=== PATIENT | female | born 1965 | race African-American/Black ===

== ENCOUNTER 2017-01-24 16:45 | Emergency (ER) | payer MEDICAID ==
[~2017-01-24] VITALS: Ht 162.6 cm; Wt 73.0 kg
[~2017-01-24 16:45] MED LIST: AMLO10TA80 PO; AMLO5TAB88 PO; AMOX-CLAV PO; ATOR40TA70 PO; CLOP75TA33 PO; HYDR-4009 PO; LORA1TAB PO; LOSA1TAB37 PO; METO50TA5 PO; SUCR1TAB PO
[2017-01-24] MEDS ORDERED: ONDANSETRON HCL 4MG/2ML VIAL IV STA (18:44)
[2017-01-24] MEDS ORDERED: SODIUM CHLORIDE 0.9% 500 ML IV ONE (18:44)
[2017-01-24] MEDS ORDERED: FAMOTIDINE 20MG/2ML VIAL IV STA (18:44)
[2017-01-24] MEDS ORDERED: MAGNESIUM/ALUMINUM HYDROXIDE/SIMETHICONE 30ML UDC PO STA (18:44)
[2017-01-24 19:16] LABS: BASOPHILS % 0.8 % (0.0-2.0); EOSINOPHILS % 0.4 % (0.0-5.0); HEMATOCRIT. 31.1 % (36.0-48.0); HEMOGLOBIN. 9.8 g/dL (12.0-16.0); LYMPHOCYTES % 10.3 % (20.0-50.0); MEAN CORPUSCULAR HEMOGLOBIN 21.1 pg (28.0-32.0); MEAN CORPUSCULAR VOLUME 66.5 fL (81.0-99.0); MEAN PLATELET VOLUME 7.5 fl (7.4-10.4); MONOCYTES % 3.5 % (2.0-8.0); PLATELET 436 x1000/uL (130-400); RED BLOOD CELL COUNT 4.67 mill/uL (4.2-5.4); RED CELL DISTRIBUTION WIDTH 17.3 % (11.6-14.6)
[2017-01-24 19:22] LABS: PROTHROMBIN TIME 10.7 sec (9.4-11.6)
[2017-01-24 19:24] LABS: CARBON DIOXIDE 29 mEq/L (21-32); CHLORIDE 98 mEq/L (98-107)
[2017-01-24 19:35] LABS: PLATELET ESTIMATE SLIGHTLY INCREASED
[2017-01-24] MEDS ORDERED: DIPHENHYDRAMINE 50MG/ML VIAL IV ONE (20:00)
[2017-01-24] MEDS ORDERED: METOCLOPRAMIDE HCL 10MG/2ML VIAL IV ONE ×2 (20:00→22:15)
[2017-01-24] MEDS ORDERED: POTASSIUM CHLORIDE 20MEQ/PACKET PO ONE (21:45)
[2017-01-24 22:08] LABS: CLARITY URINE CLOUDY (CLEAR); COLOR URINE YELLOW (YELLOW); GLUCOSE URINE 2+ (NEGATIVE); KETONES URINE 2+ (NEGATIVE); LEUKOCYTE ESTERASE URINE TRACE (NEGATIVE); NITRITE URINE POSITIVE (NEGATIVE); OCCULT BLOOD URINE 2+ (NEGATIVE); PROTEIN URINE 3+ (NEGATIVE); SPECIFIC GRAVITY URINE 1.026 (1.005-1.030)
[2017-01-24] MEDS ORDERED: MORPHINE SULFATE 4 MG/ML CPJ (NOT FOR IM USE) IV ONE (22:15)
[2017-01-24] MEDS ORDERED: CEFTRIAXONE 1 G PREMIX 50 ML IV ONE (22:45)
[2017-01-24 23:11] VITALS: BP 164/96
[2017-02-16] MEDS ORDERED: OMEP20CA10 PO (12:56)
== END 2017-01-24 23:23 | disposition home or self-care (01) ==
LOC: ER 16:45
DX: N39.0 Urinary tract infection, site not specified (principal); R10.9 Unspecified abdominal pain; R11.0 Nausea; E87.6 Hypokalemia; I10 Essential (primary) hypertension; I25.2 Old myocardial infarction; I25.10 Atherosclerotic heart disease of native coronary artery without angina pectoris; F17.210 Nicotine dependence, cigarettes, uncomplicated; F12.10 Cannabis abuse, uncomplicated; E11.43 Type 2 diabetes mellitus with diabetic autonomic (poly)neuropathy; K31.84 Gastroparesis; G89.29 Other chronic pain; E78.00 Pure hypercholesterolemia, unspecified; Z88.3 Allergy status to other anti-infective agents; Z98.62 Peripheral vascular angioplasty status; Z86.718 Personal history of other venous thrombosis and embolism
CPT/HCPCS: 36415; 80053; 81001; 83690; 85025; 85610; 93005; 96361; 96365; 96375; 96376; 99285; J0696; J1200; J2270; J2405; J2765; J3490; J7030; Z7610

== ENCOUNTER 2017-02-15 09:53 | Inpatient (IN) | payer MEDICAID ==
[~2017-02-15] VITALS: Ht 162.6 cm; Wt 72.6 kg
[2017-02-15] MEDS ORDERED: ONDANSETRON HCL 4MG/2ML VIAL IV STA (10:40)
[2017-02-15] MEDS ORDERED: DICYCLOMINE 10 MG/5 ML ORAL SYR PO ONE (10:45)
[2017-02-15] MEDS ORDERED: FAMOTIDINE 20MG/2ML VIAL IV ONE (10:45)
[2017-02-15] MEDS ORDERED: NITROGLYCERIN OINT 1GM/INCH UDPKT TD ONE (10:45)
[2017-02-15] MEDS ORDERED: MAGNESIUM/ALUMINUM HYDROXIDE/SIMETHICONE 30ML UDC PO ONE (10:45)
[2017-02-15] MEDS ORDERED: VISCOUS LIDOCAINE 2% 15 ML UDC PO ONE (10:45)
[2017-02-15] MEDS ORDERED: DIPHENHYDRAMINE 50MG/ML VIAL IV ONE (11:15)
[2017-02-15] MEDS ORDERED: METOCLOPRAMIDE HCL 10MG/2ML VIAL IV ONE (11:15)
[2017-02-15 11:35] LABS: BASOPHILS % 0.6 % (0.0-2.0); EOSINOPHILS % 0.2 % (0.0-5.0); HEMATOCRIT. 33.3 % (36.0-48.0); HEMOGLOBIN. 10.2 g/dL (12.0-16.0); LYMPHOCYTES % 10.2 % (20.0-50.0); MEAN CORPUSCULAR HEMOGLOBIN 20.8 pg (28.0-32.0); MEAN CORPUSCULAR VOLUME 67.5 fL (81.0-99.0); MEAN PLATELET VOLUME 7.2 fl (7.4-10.4); PLATELET 328 x1000/uL (130-400); RED BLOOD CELL COUNT 4.93 mill/uL (4.2-5.4); RED CELL DISTRIBUTION WIDTH 17.6 % (11.6-14.6)
[2017-02-15 11:43] LABS: CHLORIDE 103 mEq/L (98-107); INR 1.1
[2017-02-15 11:54] LABS: CARBON DIOXIDE 27 mEq/L (21-32); TROPONIN I < 0.02 ng/mL (0.00-0.04)
[2017-02-15 12:29] LABS: PLATELET ESTIMATE NORMAL
[2017-02-15] MEDS ORDERED: HYDROCODONE/ACETAMINOPHEN 5/325MG TABLET PO PRN ×2 (14:00→14:15)
[2017-02-15] MEDS ORDERED: CLONIDINE 0.1MG TABLET PO NR (14:00)
[2017-02-15 14:15] LABS: CLARITY URINE CLEAR (CLEAR); COLOR URINE YELLOW (YELLOW); GLUCOSE URINE TRACE (NEGATIVE); KETONES URINE NEGATIVE (NEGATIVE); LEUKOCYTE ESTERASE URINE TRACE (NEGATIVE); NITRITE URINE NEGATIVE (NEGATIVE); OCCULT BLOOD URINE TRACE (NEGATIVE); PH URINE 5.5 (4.5-8.0); PROTEIN URINE 2+ (NEGATIVE); UROBILINOGEN URINE 0.2 E.U./dL (0.2-1.0)
[2017-02-15] MEDS ORDERED: ACETAMINOPHEN 325MG TABLET PO PRN (14:15)
[2017-02-15] MEDS ORDERED: CLONIDINE 0.1MG TABLET PO PRN (14:15)
[2017-02-15] MEDS ORDERED: DOCUSATE SODIUM 100MG CAPSULE PO PRN (14:15)
[2017-02-15] MEDS ORDERED: IPRATROPIUM/ALBUTEROL 0.5-3(2.5)MG/3ML NEB INH PRN (14:15)
[2017-02-15] MEDS ORDERED: MAGNESIUM/ALUMINUM HYDROXIDE/SIMETHICONE 30ML UDC PO PRN (14:15)
[2017-02-15] MEDS: ONDANSETRON HCL 4MG/2ML VIAL IV NR ×2 (14:16→17:59)
[2017-02-15 16:10] LABS: *AMPHETAMINES SCREEN URINE NEGATIVE (NEGATIVE); *BARBITURATES SCREEN URINE NEGATIVE (NEGATIVE); *BENZODIAZEPINES SCREEN URINE NEGATIVE (NEGATIVE); *COCAINE SCREEN URINE NEGATIVE (NEGATIVE); CANNABINOID URINE SCREEN PRESUMTIVE POSITIVE (NEGATIVE); METHADONE URINE SCREEN NEGATIVE (NEGATIVE); OPIATES URINE SCREEN PRESUMTIVE POSITIVE (NEGATIVE); PHENCYCLIDINE URINE SCREEN NEGATIVE (NEGATIVE)
[2017-02-15 16:22] LABS: CHLORIDE 103 mEq/L (98-107)
[2017-02-15 16:28] LABS: CARBON DIOXIDE 26 mEq/L (21-32)
[2017-02-15] MEDS ORDERED: REGADENOSON 0.4 MG/5 ML IV NR (16:30)
[2017-02-15] MEDS: LOSARTAN POTASSIUM 50 MG TABLET PO SCH ×2 (17:00→20:44)
[2017-02-15] MEDS ORDERED: ENOXAPARIN 40MG/0.4ML SYR SUBCUT SCH (17:00)
[2017-02-15] MEDS: AMLODIPINE 5MG TABLET PO SCH ×2 (17:00→20:45)
[2017-02-15 17:08] VITALS: BP 200/86
[2017-02-15] MEDS ORDERED: DEXTROSE 50% WATER 50ML SYRINGE IV PRN (17:30)
[2017-02-15] MEDS ORDERED: METOCLOPRAMIDE HCL 5MG TABLET PO SCH (18:00)
[2017-02-15] MEDS: MORPHINE SULFATE 4 MG/ML CPJ (NOT FOR IM USE) IV PRN ×2 (18:03→22:07)
[2017-02-15] MEDS: HYDRALAZINE 20MG/ML VIAL IV PRN (20:43)
[2017-02-15] MEDS: BLOOD SUGAR DIAGNOSTIC STRIP TEST SCH (20:51)
[2017-02-15] MEDS: ONDANSETRON HCL 4MG/2ML VIAL IV PRN (22:07)
[2017-02-15] MEDS: INSULIN LISPRO 100 UNITS/ML SUBCUT SCH (22:21)
[2017-02-16] VITALS: BP 168/81
[2017-02-16] MEDS: METOCLOPRAMIDE HCL 10MG/2ML VIAL IV SCH ×2 (00:22→06:03)
[2017-02-16] MEDS: HYDRALAZINE 20MG/ML VIAL IV PRN (02:56)
[2017-02-16] MEDS: ONDANSETRON HCL 4MG/2ML VIAL IV PRN (02:56)
[2017-02-16] MEDS: MORPHINE SULFATE 4 MG/ML CPJ (NOT FOR IM USE) IV PRN ×2 (02:57→09:33)
[2017-02-16 04:00] VITALS: BP 125/71
[2017-02-16] MEDS: BLOOD SUGAR DIAGNOSTIC STRIP TEST SCH (06:07)
[2017-02-16] MEDS: INSULIN LISPRO 100 UNITS/ML SUBCUT SCH (06:08)
[2017-02-16 08:00] VITALS: BP 115/61
[2017-02-16 08:03] LABS: BASOPHILS % 1.4 % (0.0-2.0); EOSINOPHILS % 0.2 % (0.0-5.0); HEMOGLOBIN. 9.9 g/dL (12.0-16.0); LYMPHOCYTES % 25.8 % (20.0-50.0); MEAN CORPUSCULAR HEMOGLOBIN 21.2 pg (28.0-32.0); MEAN CORPUSCULAR VOLUME 66.6 fL (81.0-99.0); MEAN PLATELET VOLUME 7.3 fl (7.4-10.4); MONOCYTES % 6.8 % (2.0-8.0); NEUTROPHILS % 65.8 % (40.0-76.0); PLATELET 316 x1000/uL (130-400); RED BLOOD CELL COUNT 4.65 mill/uL (4.2-5.4); RED CELL DISTRIBUTION WIDTH 17.5 % (11.6-14.6)
[2017-02-16 08:28] LABS: CREATINE KINASE 79 IU/L (26-192); HDL CHOLESTEROL 72 mg/dL (40-59); LDL CHOLESTEROL 68 mg/dL (5-100)
[2017-02-16 08:34] LABS: CREATINE KINASE MB FRACTION 1.2 ng/mL (0.5-3.6); TROPONIN I < 0.02 ng/mL (0.00-0.04)
[2017-02-16] MEDS: AMLODIPINE 5MG TABLET PO SCH (09:00)
[2017-02-16] MEDS ORDERED: ASPIRIN 81MG EC TABLET PO SCH (09:00)
[2017-02-16] MEDS ORDERED: PANTOPRAZOLE SODIUM 40 MG/VIAL IV SCH (09:00)
[2017-02-16] MEDS: LOSARTAN POTASSIUM 50 MG TABLET PO SCH (09:00)
[2017-02-16] MEDS ORDERED: REGADENOSON 0.4 MG/5 ML IV ONE (11:29)
[2017-02-16] MEDS ORDERED: OMEP20CA10 PO (12:56)
[2017-02-16 13:35] VITALS: BP 120/70
== END 2017-02-16 14:15 | disposition home or self-care (01) | DRG 198 ==
LOC: ER 10:04 → 5WST 12:42 → EDBEDREQ 12:48 → ENRESERV 16:10
PROVIDERS: ADMIT Internal Medicine; ATTEND Internal Medicine
DX: R07.89 Other chest pain (principal); I25.2 Old myocardial infarction; I11.0 Hypertensive heart disease with heart failure; E11.51 Type 2 diabetes mellitus with diabetic peripheral angiopathy without gangrene; I50.9 Heart failure, unspecified; I25.10 Atherosclerotic heart disease of native coronary artery without angina pectoris; K31.84 Gastroparesis; E11.43 Type 2 diabetes mellitus with diabetic autonomic (poly)neuropathy; J44.9 Chronic obstructive pulmonary disease, unspecified; F12.90 Cannabis use, unspecified, uncomplicated; Z79.02 Long term (current) use of antithrombotics/antiplatelets; F17.210 Nicotine dependence, cigarettes, uncomplicated; D63.8 Anemia in other chronic diseases classified elsewhere; E78.00 Pure hypercholesterolemia, unspecified; Z86.718 Personal history of other venous thrombosis and embolism; Z95.5 Presence of coronary angioplasty implant and graft; Z88.1 Allergy status to other antibiotic agents; Z79.82 Long term (current) use of aspirin
CPT/HCPCS: 36415; 71010; 78452; 80048; 80053; 80061; 80305; 81001; 82550; 82553; 82962; 83605; 83690; 83735; 83880; 84443; 84484; 85025; 85379; 85610; 87040; 87086; 93005; 93017; 93970; 96374; 96375; 99285; A9500; C1893; C9113; J0360; J1200; J1815; J2270; J2405; J2765; J2785; J3490

== ENCOUNTER 2018-02-08 20:56 | Emergency (ER) | payer MEDICAID ==
[~2018-02-08] VITALS: Ht 175.3 cm; Wt 73.0 kg
[~2018-02-08 20:56] MED LIST changes: -AMLO5TAB88 PO; -AMOX-CLAV PO; +DOCU-138 PO; +GABA-531 MT; +INSLIS SUBCUT; +LANTUSUD SUBCUT; +LISI10TA5 PO; -LORA1TAB PO; -LOSA1TAB37 PO; +METO-539 PO; -METO50TA5 PO; +OMEP20CA10 PO
[2018-02-08] MEDS ORDERED: ONDANSETRON HCL 4MG/2ML INJ IV STA (21:06)
[2018-02-08] MEDS ORDERED: SODIUM CHLORIDE 0.9% 1,000 ML IV ONE (21:06)
[2018-02-08] MEDS ORDERED: KETOROLAC 30MG/ML VIAL IV STA (21:06)
[2018-02-08 22:42] LABS: CLARITY URINE CLEAR (CLEAR); COLOR URINE YELLOW (YELLOW); KETONES URINE NEGATIVE (NEGATIVE); LEUKOCYTE ESTERASE URINE TRACE (NEGATIVE); NITRITE URINE NEGATIVE (NEGATIVE); OCCULT BLOOD URINE 2+ (NEGATIVE); PROTEIN URINE TRACE (NEGATIVE); SPECIFIC GRAVITY URINE 1.038 (1.005-1.030); UROBILINOGEN URINE 0.2 E.U./dL (0.2-1.0)
[2018-02-08 22:47] LABS: BASOPHILS % 0.9 % (0.0-2.0); EOSINOPHILS % 2.6 % (0.0-5.0); HEMATOCRIT. 37.5 % (36.0-48.0); HEMOGLOBIN. 11.9 g/dL (12.0-16.0); LYMPHOCYTES % 23.7 % (20.0-50.0); MEAN CORPUSCULAR HEMOGLOBIN 22.5 pg (28.0-32.0); MEAN CORPUSCULAR VOLUME 70.8 fL (81.0-99.0); MEAN PLATELET VOLUME 8.4 fl (7.4-10.4); MONOCYTES % 5.4 % (2.0-8.0); NEUTROPHILS % 67.4 % (40.0-76.0); PLATELET 309 x1000/uL (130-400); RED CELL DISTRIBUTION WIDTH 14.6 % (11.6-14.6)
[2018-02-08 22:48] LABS: CHLORIDE 96 mEq/L (98-107)
[2018-02-08] MEDS ORDERED: IOHEXOL-300 100 ML BOTTLE ONE (22:57)
[2018-02-08] MEDS ORDERED: MORPHINE SULFATE 4 MG/ML CPJ (NOT FOR IM USE) IV ONE (23:15)
[2018-02-08] MEDS ORDERED: ONDANSETRON HCL 4MG/2ML INJ IV ONE (23:45)
[2018-02-09] MEDS ORDERED: METOCLOPRAMIDE HCL 10MG/2ML VIAL IV ONE (01:00)
[2018-02-09] MEDS ORDERED: MORPHINE SULFATE 4 MG/ML CPJ (NOT FOR IM USE) IV ONE (01:00)
[2018-02-09 02:07] VITALS: BP 170/80
== END 2018-02-09 02:13 | disposition home or self-care (01) ==
LOC: ER 21:01
DX: B34.9 Viral infection, unspecified (principal); E11.65 Type 2 diabetes mellitus with hyperglycemia; E11.21 Type 2 diabetes mellitus with diabetic nephropathy; K59.00 Constipation, unspecified; R31.9 Hematuria, unspecified; M54.9 Dorsalgia, unspecified; Z79.4 Long term (current) use of insulin; Z79.899 Other long term (current) drug therapy
CPT/HCPCS: 36415; 71045; 74177; 80053; 81003; 83690; 85025; 87804; 96361; 96374; 96375; 96376; 99285; J1885; J2270; J2405; J2765; J7030; Q9967

== ENCOUNTER 2018-07-20 12:51 | Emergency (ER) | payer MEDICAID ==
[~2018-07-20] VITALS: Ht 157.5 cm; Wt 82.0 kg
[2018-07-20 12:56] VITALS: BP 156/90
== END 2018-07-20 17:42 | disposition left against medical advice (07) ==
LOC: ER 12:51
DX: Z53.21 Procedure and treatment not carried out due to patient leaving prior to being seen by health care provider (principal)

== ENCOUNTER 2018-11-05 08:38 | Inpatient (IN) | payer MEDICARE, MEDICAID ==
[~2018-11-05] VITALS: Ht 167.6 cm; Wt 81.6 kg
[~2018-11-05 08:38] MED LIST changes: -OMEP20CA10 PO; +OMEP20CA5 PO
[2018-11-05] MEDS ORDERED: ONDANSETRON HCL 4MG/2ML INJ IV ONE (09:45)
[2018-11-05] MEDS ORDERED: MORPHINE SULFATE 4 MG/ML CPJ (NOT FOR IM USE) IV ONE (09:45)
[2018-11-05 10:25] LABS: EOSINOPHILS % 0.3 % (0.0-5.0); HEMATOCRIT. 43.3 % (36.0-48.0); HEMOGLOBIN. 13.6 g/dL (12.0-16.0); LYMPHOCYTES % 13.7 % (20.0-50.0); MEAN CORPUSCULAR HEMOGLOBIN 22.3 pg (28.0-32.0); MEAN CORPUSCULAR VOLUME 71.2 fL (81.0-99.0); MEAN PLATELET VOLUME 7.9 fl (7.4-10.4); MONOCYTES % 2.8 % (2.0-8.0); NEUTROPHILS % 82.2 % (40.0-76.0); PLATELET 337 x1000/uL (130-400); RED BLOOD CELL COUNT 6.09 mill/uL (4.2-5.4); RED CELL DISTRIBUTION WIDTH 15.7 % (11.6-14.6)
[2018-11-05] MEDS ORDERED: DIPHENHYDRAMINE 50MG/ML VIAL IV ONE (10:45)
[2018-11-05] MEDS ORDERED: METHYLPREDNISOLONE SOD SUCC 125 MG/2 ML VIAL IV ONE (10:45)
[2018-11-05 11:01] LABS: PROTHROMBIN TIME > 100.0 sec (9.6-11.0)
[2018-11-05 11:02] LABS: INR > 10.0
[2018-11-05 13:09] LABS: CHLORIDE 104 mEq/L (98-107)
[2018-11-05] MEDS ORDERED: MAGNESIUM/ALUMINUM HYDROXIDE/SIMETHICONE 30ML UDC PO PRN (13:45)
[2018-11-05] MEDS ORDERED: MORPHINE SULFATE 2 MG/ML CPJ (NOT FOR IM USE) IV PRN (13:45)
[2018-11-05] MEDS ORDERED: IPRATROPIUM/ALBUTEROL 0.5-3(2.5)MG/3ML NEB INH PRN (13:45)
[2018-11-05] MEDS ORDERED: GUAIFENESIN 200MG/10ML SUGAR FREE UDC PO PRN (13:45)
[2018-11-05] MEDS ORDERED: DOCUSATE SODIUM 100MG CAPSULE PO PRN (13:45)
[2018-11-05 14:00] LABS: PHOSPHORUS 3.2 mg/dL (2.5-4.9)
[2018-11-05] MEDS ORDERED: PHYTONADIONE 10 MG in DEXTROSE 5% WATER 50 ML IV ONE (14:00)
[2018-11-05] MEDS ORDERED: PIPERACILLIN/TAZ 3.375G PREMIX 50 ML IV SCH (14:00)
[2018-11-05] MEDS: ONDANSETRON HCL 4MG/2ML INJ IV PRN ×2 (14:09→20:01)
[2018-11-05 14:19] LABS: CLARITY URINE TURBID (CLEAR); COLOR URINE YELLOW (YELLOW); KETONES URINE 2+ (NEGATIVE); LEUKOCYTE ESTERASE URINE 1+ (NEGATIVE); NITRITE URINE POSITIVE (NEGATIVE); OCCULT BLOOD URINE 2+ (NEGATIVE); PROTEIN URINE 2+ (NEGATIVE); SPECIFIC GRAVITY URINE 1.023 (1.005-1.030); UROBILINOGEN URINE 0.2 E.U./dL (0.2-1.0)
[2018-11-05] MEDS ORDERED: HYDROMORPHONE HCL/PF 2MG/ML CPJ IV PRN ×3 (15:00→21:00)
[2018-11-05 15:13] LABS: CREATINE KINASE MB FRACTION 1.6 ng/mL (0.5-3.6)
[2018-11-05 15:30] LABS: PARTIAL THROMBOPLASTIN TIME 26.3 sec (23.4-31.0); PROTHROMBIN TIME 10.4 sec (9.6-11.0)
[2018-11-05] MEDS ORDERED: PHYTONADIONE 5 MG/5ML ORAL SYRINGE PO ONE (15:30)
[2018-11-05] MEDS: DIPHENHYDRAMINE 50MG/ML VIAL IV PRN ×2 (15:46→22:51)
[2018-11-05] MEDS ORDERED: LEVOFLOXACIN 500MG PREMIX 100 ML IV ONE (16:00)
[2018-11-05] MEDS ORDERED: METOCLOPRAMIDE HCL 10MG/2ML VIAL IV PRN (16:00)
[2018-11-05 16:32] VITALS: BP 196/80
[2018-11-05 16:40] VITALS: BP 196/80
[2018-11-05] MEDS: CLONIDINE 0.1MG TABLET PO PRN ×2 (17:07→22:51)
[2018-11-05] MEDS: CLOPIDOGREL 75MG TABLET PO SCH (17:07)
[2018-11-05] MEDS ORDERED: HYDROMORPHONE HCL/PF 2MG/ML CPJ IV NR (17:22)
[2018-11-05 20:00] VITALS: BP 200/99
[2018-11-05] MEDS: METOPROLOL TARTRATE 50MG TABLET PO SCH (21:06)
[2018-11-05] MEDS: LISINOPRIL 10MG TABLET PO SCH (21:06)
[2018-11-05] MEDS ORDERED: DEXTROSE 50% WATER 50ML SYRINGE IV PRN ×2 (21:15)
[2018-11-05] MEDS: INSULIN LISPRO 100 UNITS/ML SUBCUT SCH (21:57)
[2018-11-05] MEDS: BLOOD SUGAR DIAGNOSTIC STRIP TEST SCH (21:58)
[2018-11-05] MEDS: GABAPENTIN 300MG CAPSULE PO SCH (22:06)
[2018-11-05] MEDS: PIPERACILLIN/TAZ 3.375G PREMIX 50 ML IV SCH (22:51)
[2018-11-05 23:11] VITALS: BP 184/82
[2018-11-06] VITALS: BP 157/60
[2018-11-06 00:25] LABS: CREATINE KINASE MB FRACTION 2.1 ng/mL (0.5-3.6)
[2018-11-06 04:00] VITALS: BP 125/65
[2018-11-06] MEDS: GABAPENTIN 300MG CAPSULE PO SCH ×2 (05:51→14:26)
[2018-11-06 06:04] LABS: BASOPHILS % 0.3 % (0.0-2.0); HEMATOCRIT. 33.4 % (36.0-48.0); HEMOGLOBIN. 10.8 g/dL (12.0-16.0); LYMPHOCYTES % 13.7 % (20.0-50.0); MEAN CORPUSCULAR HEMOGLOBIN 22.5 pg (28.0-32.0); MEAN CORPUSCULAR VOLUME 69.9 fL (81.0-99.0); MEAN PLATELET VOLUME 7.7 fl (7.4-10.4); MONOCYTES % 7.2 % (2.0-8.0); NEUTROPHILS % 78.8 % (40.0-76.0); PLATELET 331 x1000/uL (130-400); RED BLOOD CELL COUNT 4.78 mill/uL (4.2-5.4); RED CELL DISTRIBUTION WIDTH 15.5 % (11.6-14.6)
[2018-11-06 06:26] LABS: CHLORIDE 99 mEq/L (98-107)
[2018-11-06] MEDS: PIPERACILLIN/TAZ 3.375G PREMIX 50 ML IV SCH ×2 (06:28→14:27)
[2018-11-06 06:39] LABS: LDL CHOLESTEROL 113 mg/dL (5-100)
[2018-11-06 06:40] LABS: HDL CHOLESTEROL 57 mg/dL (40-59)
[2018-11-06] MEDS: BLOOD SUGAR DIAGNOSTIC STRIP TEST SCH ×2 (06:43→12:52)
[2018-11-06] MEDS ORDERED: OMEPRAZOLE 20MG CAPSULE EXTENDED RELEASE PO SCH (07:10)
[2018-11-06 08:00] VITALS: BP 102/58
[2018-11-06] MEDS: CLOPIDOGREL 75MG TABLET PO SCH (08:53)
[2018-11-06] MEDS: LISINOPRIL 10MG TABLET PO SCH (08:54)
[2018-11-06] MEDS: METOPROLOL TARTRATE 50MG TABLET PO SCH (08:55)
[2018-11-06] MEDS ORDERED: ATORVASTATIN CALCIUM 40MG TABLET PO SCH (09:00)
[2018-11-06] MEDS ORDERED: AMLODIPINE 10MG TABLET PO SCH (09:00)
[2018-11-06] MEDS: INSULIN LISPRO 100 UNITS/ML SUBCUT SCH ×3 (09:04→17:28)
[2018-11-06 12:00] VITALS: BP 100/62
[2018-11-06 15:49] LABS: CLARITY URINE CLEAR (CLEAR); COLOR URINE YELLOW (YELLOW); KETONES URINE NEGATIVE (NEGATIVE); LEUKOCYTE ESTERASE URINE TRACE (NEGATIVE); NITRITE URINE NEGATIVE (NEGATIVE); OCCULT BLOOD URINE NEGATIVE (NEGATIVE); PH URINE 5.5 (4.5-8.0); PROTEIN URINE NEGATIVE (NEGATIVE); SPECIFIC GRAVITY URINE 1.014 (1.005-1.030); UROBILINOGEN URINE 0.2 E.U./dL (0.2-1.0)
[2018-11-06 17:24] VITALS: BP 100/57
[2018-11-06 17:27] LABS: PLATELET ESTIMATE NORMAL
[2018-11-06 17:37] VITALS: BP 100/57
== END 2018-11-06 18:25 | disposition home or self-care (01) | DRG 74 ==
LOC: ER 08:38 → ENRESERV 14:08 → 6EST 15:59 → EDBEDREQ 16:01 → 8WST 22:15 → 7WST 22:39
PROVIDERS: ADMIT Internal Medicine; ATTEND Internal Medicine
DX: E11.43 Type 2 diabetes mellitus with diabetic autonomic (poly)neuropathy (principal); N39.0 Urinary tract infection, site not specified; R74.0 Nonspecific elevation of levels of transaminase and lactic acid dehydrogenase [LDH]; K31.84 Gastroparesis; I10 Essential (primary) hypertension; E78.5 Hyperlipidemia, unspecified; F17.210 Nicotine dependence, cigarettes, uncomplicated; I25.10 Atherosclerotic heart disease of native coronary artery without angina pectoris; I25.2 Old myocardial infarction; Z79.02 Long term (current) use of antithrombotics/antiplatelets; Z79.4 Long term (current) use of insulin; Z79.899 Other long term (current) drug therapy; Z95.5 Presence of coronary angioplasty implant and graft; Z88.6 Allergy status to analgesic agent; Z88.1 Allergy status to other antibiotic agents
CPT/HCPCS: 36415; 74176; 80061; 82550; 82553; 82962; 83036; 83735; 84100; 84443; 84484; 93005; 93970; 96365; 96375; 99285; J1170; J1200; J1815; J2270; J2405; J2543; J2765; J2930; J3430; J7060